=== PATIENT | male | born 1960 | race Caucasian/White ===

== ENCOUNTER 2017-05-08 09:35 | Emergency (ER) | payer SELFPAY ==
--- NOTE | 2017-05-08 10:19 | RAD ---
CHEST: Date: 05/08/17 HISTORY: Cough. COMPARISON: 10/28/15. FINDINGS: Cardiac silhouette is upper limits of normal. Shallow inspiration accentuates pulmonary markings. Ann ear atelectasis at the lung bases has increased since the prior study. No lobar consolidation, pleura l fluid, or pneumothorax are visible. IMPRESSION: Borderline pulmonary vascular congestion with bibasilar atelectasis. No lobar pneumonia is apparent. POS: [facility]
--- NOTE | 2017-05-08 10:20 | RAD ---
PARANASAL SINUSES 1 VIEW: Date: 05/08/17 HISTORY: Cough. Congestion. FINDINGS: Fluid layers within the dependent portion of the left maxillary sinus. There is near complete opacifi cation of the right maxillary sinus. Nasal septum is midline. IMPRESSION: Bilateral maxillary sinusitis. POS: [facility]
== END 2017-05-08 10:18 | disposition home or self-care (01) ==
LOC: MADERS 09:35
DX: J01.90 Acute sinusitis, unspecified (principal); J98.11 Atelectasis; Z87.891 Personal history of nicotine dependence
CPT/HCPCS: 70210; 71046

== ENCOUNTER 2017-05-12 13:30 | Emergency (ER) | payer SELFPAY ==
[2017-05-12] MEDS ORDERED: Benzonatate 100 MG CAP ONE (13:59)
[2017-05-12 14:21] LABS: #Basophils 0.1 thou/uL (0.0-0.2); #Eosinphils 0.1 thou/uL (0.0-0.7); #Lymphocytes 1.1 thou/uL (1.20-3.40); #Monocytes 0.5 thou/uL (0.11-0.59); #Neutrophils 7.3 thou/uL (1.40-6.50); %Basophils 0.6 % (0.0-1.0); %Eosinophils 0.9 % (0.0-10.0); %Lymphocytes 12.2 % (21.0-51.0); %Monocytes 5.9 % (0.0-10.0); %Neutrophils 80.3 % (42.0-75.0); Hemoglobin 13.9 g/dL (14.0-18.0); Mean Corpuscular HGB CONC 32.9 g/dL (32.0-36.0); Mean Corpuscular Hemoglobin 29.7 pg (27.0-31.0); Mean Corpuscular Volume 90.4 fl (80.0-94.0); Mean Platelet Volume 10.9 fL (7.4-10.4); Platelet Count 218 thou/uL (130-400); RBC Distribution Width 13.1 % (11.5-14.5); Red Blood Cell (RBC) Count 4.68 mill/uL (4.70-6.10); White Blood Cell (WBC) Count 9.1 thou/uL (4.8-10.8)
[2017-05-12 14:24] LABS: INR-International Normal Ratio 1.1; PTT 27.3 SEC (22.9-36.1); Prothrombin Time 14.2 SEC (12.0-14.7)
[2017-05-12 14:35] LABS: ALT (SGPT) 34 U/L (8-55); AST (SGOT) 24 U/L (5-34); Alkaline Phosphatase 81 U/L (40-150); Anion Gap 15 mmol/L (10-20); BUN (Urea Nitrogen) 15 mg/dL (8.4-25.7); Bilirubin, Total 0.8 mg/dL (0.2-1.2); Calc. Creatinine Clearance 0 mL/min (70-130); Calcium 9.4 mg/dL (7.8-10.44); Carbon Dioxide 23 mmol/L (22-29); Chloride 104 mmol/L (98-107); Estimated GFR-MDRD 83; Globulin 3.8 g/dL (2.4-3.5); Glucose 122 mg/dL (70-105); Lipase 40 U/L (8-78); Potassium 4.1 mmol/L (3.5-5.1); Protein, Total 7.8 g/dL (6.0-8.3); Sodium 138 mmol/L (136-145)
--- NOTE | 2017-05-12 15:02 | CT ---
ABDOMEN AND PELVIS CT WITH CONTRAST: INDICATION: Pain, pulled muscle. FINDINGS: Liver and spleen are unremarkable. No adrenal mass or hydronephrosis bilaterally. Pancreas is unrem arkable. The bowel is incompletely evaluated without enteric contrast. There is a heterogeneous mas s-like prominence of the inferior aspect of the left rectus abdominus with interspersed linear areas of hyperdensity. This favors an intramuscular hematoma, although an underlying mass cannot be exclud ed. There is mild inflammatory stranding of the ventral abdominal compartment deep to this region of abnormal ventral abdominal musculature. There is also overlying fat stranding of the subcutaneous r egion of the left abdomen. A small fat-containing umbilical hernia is present. The abdominal aorta is normal in caliber. The prostate gland is enlarged with internal calcification. There is mild lef t ventral mass effect upon the urinary bladder as a result of the abnormality of the left rectus musc le. No free air. The osseous structures reveal mild compression deformity of the L1 segment, age in determinate. Mild nonspecific patchy densities are seen at the lung bases. IMPRESSION: 1. Heterogeneous and enlarged left rectus abdominus muscle inferiorly with interspersed linear hyper density favoring intramuscular hematoma. However, an underlying mass cannot be exclude, and, therefo re, imaging followup to resolution is necessary. 2. Surrounding inflammatory fat stranding within the abdominal compartment and within the subcutaneo us tissues of the low abdomen. 3. Mild extrinsic mass effect upon urinary bladder as above. 4. Enlarged prostate gland with internal calcification. Recommend correlation with clinical exam an d PSA values to exclude underlying malignancy. POS: [facility]
[2017-05-12 15:17] LABS: Bilirubin Negative (Negative); Blood, Urine Negative (Negative); Clarity Clear (Clear); Glucose, Urine (Dipstick) Negative (Negative); Leukocyte Negative (Negative); Nitrite Negative (Negative); Protein, Urine (Dipstick) Trace mg/dL (Neg-Trace); pH, Urine 5.5 (5.0-9.0)
[2017-05-12] MEDS ORDERED: Ketorolac Tromethamine 30 MG/ML VIAL ONE (15:17)
== END 2017-05-12 15:41 | disposition home or self-care (01) ==
LOC: MADERS 13:30
DX: M79.81 Nontraumatic hematoma of soft tissue (principal); J32.9 Chronic sinusitis, unspecified; Z87.891 Personal history of nicotine dependence
CPT/HCPCS: 36415; 74177; 80053; 81003; 83605; 83690; 85025; 85610; 85730; 96374; J1885

== ENCOUNTER 2017-05-15 07:51 | Emergency (ER) | payer SELFPAY ==
[2017-05-15 08:54] LABS: #Basophils 0.1 thou/uL (0.0-0.2); #Eosinphils 0.2 thou/uL (0.0-0.7); #Lymphocytes 1.1 thou/uL (1.20-3.40); #Monocytes 0.6 thou/uL (0.11-0.59); #Neutrophils 3.1 thou/uL (1.40-6.50); %Basophils 1.7 % (0.0-1.0); %Eosinophils 4.1 % (0.0-10.0); %Lymphocytes 20.7 % (21.0-51.0); %Monocytes 11.8 % (0.0-10.0); %Neutrophils 61.7 % (42.0-75.0); Hemoglobin 13.1 g/dL (14.0-18.0); Mean Corpuscular HGB CONC 32.7 g/dL (32.0-36.0); Mean Corpuscular Hemoglobin 30.1 pg (27.0-31.0); Mean Platelet Volume 10.3 fL (7.4-10.4); Platelet Count 235 thou/uL (130-400); RBC Distribution Width 13.2 % (11.5-14.5); Red Blood Cell (RBC) Count 4.35 mill/uL (4.70-6.10); White Blood Cell (WBC) Count 5.1 thou/uL (4.8-10.8)
== END 2017-05-15 09:10 | disposition home or self-care (01) ==
LOC: MADERS 07:51
DX: S39.011A Strain of muscle, fascia and tendon of abdomen, initial encounter (principal); M79.89 Other specified soft tissue disorders; J20.9 Acute bronchitis, unspecified; X58.XXXA Exposure to other specified factors, initial encounter
CPT/HCPCS: 85025; 99283

== ENCOUNTER 2017-11-02 14:33 | Emergency (ER) | payer SELFPAY ==
[2017-11-02] MEDS ORDERED: Sulfameth/Trimethoprim DS 800-160mg TAB ONE (15:29)
[2017-11-02] MEDS ORDERED: Cephalexin 500 MG CAP ONE (15:29)
[2017-11-02] MEDS ORDERED: Naproxen 500 MG TAB ONE (15:29)
== END 2017-11-02 15:35 | disposition home or self-care (01) ==
LOC: MADERS 14:33
DX: L02.11 Cutaneous abscess of neck (principal); Z87.891 Personal history of nicotine dependence
CPT/HCPCS: 99282

== ENCOUNTER 2018-07-13 01:27 | Emergency (ER) | payer SELFPAY ==
[2018-07-13] MEDS ORDERED: Benzonatate 100 MG CAP ONE (02:12)
[2018-07-13] MEDS ORDERED: predniSONE 20 MG TAB ONE (02:12)
== END 2018-07-13 02:17 | disposition home or self-care (01) ==
LOC: MADERS 01:27
DX: J06.9 Acute upper respiratory infection, unspecified (principal); Z87.891 Personal history of nicotine dependence
CPT/HCPCS: 99283

== ENCOUNTER 2019-01-30 10:10 | Emergency (ER) | payer SELFPAY ==
[2019-01-30] MEDS ORDERED: Cephalexin 250 MG CAP ONE (10:38)
[2019-01-30] MEDS ORDERED: Cephalexin 500 MG CAP ONE (10:38)
[2019-01-30] MEDS ORDERED: Bacitracin 1 PK ONE (10:38)
== END 2019-01-30 10:49 | disposition home or self-care (01) ==
LOC: MADERS 10:10
DX: L03.311 Cellulitis of abdominal wall (principal); K21.9 Gastro-esophageal reflux disease without esophagitis; I10 Essential (primary) hypertension; Z87.891 Personal history of nicotine dependence
CPT/HCPCS: 99283

== ENCOUNTER 2019-11-29 17:00 | Emergency (ER) | payer OTHER ==
[2019-11-29 17:47] LABS: #Basophils 0.1 thou/uL (0.0-0.2); #Eosinphils 0.1 thou/uL (0.0-0.7); #Lymphocytes 1.6 thou/uL (1.20-3.40); #Monocytes 0.7 thou/uL (0.11-0.59); #Neutrophils 2.4 thou/uL (1.40-6.50); %Basophils 1.3 % (0.0-1.0); %Eosinophils 1.9 % (0.0-10.0); %Monocytes 13.9 % (0.0-10.0); Hemoglobin 15.1 g/dL (14.0-18.0); Mean Corpuscular HGB CONC 31.7 g/dL (32.0-36.0); Mean Corpuscular Hemoglobin 28.4 pg (27.0-31.0); Mean Corpuscular Volume 89.7 fL (78.0-98.0); Platelet Count 120 thou/uL (130-400); RBC Distribution Width 13.5 % (11.5-14.5); Red Blood Cell (RBC) Count 5.33 mill/uL (4.70-6.10); White Blood Cell (WBC) Count 4.8 thou/uL (4.8-10.8)
[2019-11-29 18:04] LABS: ALT (SGPT) 23 U/L (8-55); AST (SGOT) 21 U/L (5-34); Albumin 4.4 g/dL (3.5-5.0); Alkaline Phosphatase 79 U/L (40-110); Anion Gap 16 mmol/L (10-20); BUN (Urea Nitrogen) 12 mg/dL (8.4-25.7); Bilirubin, Total 0.7 mg/dL (0.2-1.2); Calc. Creatinine Clearance 0 mL/min (70-130); Calcium 9.2 mg/dL (7.8-10.44); Carbon Dioxide 23 mmol/L (22-29); Chloride 108 mmol/L (98-107); Estimated GFR-MDRD 89; Globulin 3.4 g/dL (2.4-3.5); Glucose 100 mg/dL (70-105); Protein, Total 7.8 g/dL (6.0-8.3); Sodium 143 mmol/L (136-145)
== END 2019-11-29 18:17 | disposition home or self-care (01) ==
LOC: MADERS 17:00
DX: R27.0 Ataxia, unspecified (principal); T42.6X5A Adverse effect of other antiepileptic and sedative-hypnotic drugs, initial encounter; K21.9 Gastro-esophageal reflux disease without esophagitis; I10 Essential (primary) hypertension; Z87.891 Personal history of nicotine dependence; Z79.899 Other long term (current) drug therapy
CPT/HCPCS: 36415; 80053; 84484; 85025; 93005

== ENCOUNTER 2019-12-24 09:32 | Emergency (ER) | payer OTHER | END 2019-12-24 10:20 | disposition home or self-care (01) | LOC: MADERS 09:32 | DX: I10 Essential (primary) hypertension (principal); K21.9 Gastro-esophageal reflux disease without esophagitis; Z79.899 Other long term (current) drug therapy | CPT/HCPCS: 99283 ==

== ENCOUNTER 2020-01-30 10:57 | Emergency (ER) | payer OTHER, SELFPAY ==
[2020-01-30] MEDS ORDERED: Aspirin Chewable 81 MG TAB ONE (11:22)
[2020-01-30 11:26] LABS: #Basophils 0.1 thou/uL (0.0-0.2); #Eosinphils 0.1 thou/uL (0.0-0.7); #Lymphocytes 1.7 thou/uL (1.20-3.40); #Monocytes 0.6 thou/uL (0.11-0.59); #Neutrophils 2.6 thou/uL (1.40-6.50); %Eosinophils 1.4 % (0.0-10.0); %Lymphocytes 33.9 % (21.0-51.0); %Monocytes 11.8 % (0.0-10.0); %Neutrophils 51.9 % (42.0-75.0); Hemoglobin 14.7 g/dL (14.0-18.0); Mean Corpuscular HGB CONC 32.2 g/dL (32.0-36.0); Mean Corpuscular Hemoglobin 28.3 pg (27.0-31.0); Mean Corpuscular Volume 87.9 fL (78.0-98.0); Mean Platelet Volume 10.6 fL (7.4-10.4); Platelet Count 122 thou/uL (130-400); RBC Distribution Width 13.4 % (11.5-14.5); Red Blood Cell (RBC) Count 5.21 mill/uL (4.70-6.10); White Blood Cell (WBC) Count 5.1 thou/uL (4.8-10.8)
--- NOTE | 2020-01-30 11:30 | RAD ---
Chest AP view INDICATION: Chest pain COMPARISON: Two-view chest radiograph from [facility] dated May 08, 2017 FINDINGS: Lungs: The lungs are clear Cardiac silhouette: Stable mild cardiomegaly Pulmonary vasculature: Normal Pleural spaces: No pleural effusion or pneumothorax is demonstrated. Upper abdomen: No abnormality seen. Osseous structures: No acute osseous abnormality. Additional findings: None. IMPRESSION: No acute cardiopulmonary abnormality.
[2020-01-30 11:43] LABS: ALT (SGPT) 23 U/L (8-55); AST (SGOT) 17 U/L (5-34); Albumin 4.3 g/dL (3.5-5.0); Alkaline Phosphatase 93 U/L (40-110); Anion Gap 14 mmol/L (10-20); BUN (Urea Nitrogen) 12 mg/dL (8.4-25.7); Bilirubin, Total 0.8 mg/dL (0.2-1.2); CK (CPK) 85 U/L (30-200); Calc. Creatinine Clearance 0 mL/min (70-130); Calcium 9.5 mg/dL (7.8-10.44); Carbon Dioxide 28 mmol/L (22-29); Chloride 103 mmol/L (98-107); Estimated GFR-MDRD 77; Globulin 3.6 g/dL (2.4-3.5); Glucose 114 mg/dL (70-105); Potassium 3.9 mmol/L (3.5-5.1); Protein, Total 7.9 g/dL (6.0-8.3); Sodium 141 mmol/L (136-145)
[2020-01-30 11:44] LABS: CKMB 1.3 ng/mL (0-6.6)
== END 2020-01-30 14:10 | disposition home or self-care (01) ==
LOC: MADERS 10:57
DX: R07.2 Precordial pain (principal); I10 Essential (primary) hypertension; G81.94 Hemiplegia, unspecified affecting left nondominant side; K21.9 Gastro-esophageal reflux disease without esophagitis; Z87.891 Personal history of nicotine dependence; Z79.899 Other long term (current) drug therapy
CPT/HCPCS: 36415; 71045; 80053; 82550; 82553; 84484; 85025; 93005; 94760

== ENCOUNTER 2020-09-03 14:11 | Emergency (ER) | payer MEDICAID ==
[~2020-09-03 14:11] MED LIST: Sodium Chloride 0.9% 100 ML BAG ONE
[2020-09-03] MEDS ORDERED: Iopamidol 370 76% 125 ML VIAL FS ONE (14:12)
[2020-09-03 14:50] LABS: PTT 28.9 sec (22.9-36.1); Prothrombin Time 13.1 sec (12.0-14.7)
[2020-09-03 15:01] LABS: ALT (SGPT) 23 U/L (8-55); AST (SGOT) 20 U/L (5-34); Albumin 4.6 g/dL (3.5-5.0); Alkaline Phosphatase 82 U/L (40-110); Anion Gap 18 mmol/L (10-20); BUN (Urea Nitrogen) 12 mg/dL (8.4-25.7); Bilirubin, Total 0.7 mg/dL (0.2-1.2); CK (CPK) 189 U/L (30-200); Calc. Creatinine Clearance 0 mL/min (70-130); Calcium 9.4 mg/dL (7.8-10.44); Carbon Dioxide 23 mmol/L (22-29); Chloride 106 mmol/L (98-107); Globulin 3.4 g/dL (2.4-3.5); Glucose 132 mg/dL (70-105); Potassium 4.1 mmol/L (3.5-5.1); Sodium 143 mmol/L (136-145)
[2020-09-03 15:03] LABS: CKMB 1.3 ng/mL (0-6.6)
[2020-09-03 15:05] LABS: Hemoglobin 15.8 g/dL (14.0-18.0); Mean Corpuscular HGB CONC 30.9 g/dL (32.0-36.0); Mean Corpuscular Hemoglobin 27.9 pg (27.0-31.0); Mean Corpuscular Volume 90.4 fL (78.0-98.0); Platelet Count 96 thou/uL (130-400); RBC Distribution Width 14.5 % (11.5-14.5); Red Blood Cell (RBC) Count 5.67 mill/uL (4.70-6.10); White Blood Cell (WBC) Count 6.6 thou/uL (4.8-10.8)
[2020-09-03 15:12] LABS: #Neutrophils 3.3 thou/uL (1.40-6.50); %Basophils 2.9 % (0.0-1.0); %Eosinophils 0.9 % (0.0-10.0); %Lymphocytes 29.5 % (21.0-51.0); %Monocytes 16.6 % (0.0-10.0)
[2020-09-03 15:13] LABS: #Basophils 0.2 thou/uL (0.0-0.2); #Eosinphils 0.1 thou/uL (0.0-0.7); #Lymphocytes 1.9 thou/uL (1.20-3.40); #Monocytes 1.1 thou/uL (0.11-0.59); Platelet Morphology Comment Appears Adequate; RBC Morphology Normal
[2020-09-03 15:14] LABS: Giant Platelets SLIGHT; Large Platelets SLIGHT
[2020-09-03] MEDS ORDERED: Sodium Chloride 0.9% 1,000 ML ONE (15:21)
[2020-09-03 16:08] LABS: Bilirubin Negative (Negative); Blood, Urine Small (Negative); Clarity Clear (Clear); Glucose, Urine (Dipstick) Negative (Negative); Ketone, Urine Negative (Negative); Leukocyte Negative (Negative); Nitrite Negative (Negative); Protein, Urine (Dipstick) Negative (Neg-Trace)
[2020-09-03 16:16] LABS: Squamous Epithelial 0-3 HPF (0-3); WBC/HPF 0-3 HPF (0-3)
[2020-09-03 16:18] LABS: Amphetamine Not Detected (NotDetected); Barbiturates Screen Not Detected (NotDetected); Benzodiazepine Screen Not Detected (NotDetected); Cocaine Metabolite Screen Not Detected (NotDetected); Medtox Control Line Valid? VALID (VALID); Methadone Not Detected (NotDetected); Methamphetamine Not Detected (NotDetected); Opiate Screen Not Detected (NotDetected); Oxycodone Screen Not Detected (NotDetected); Phencyclidine (PCP) Not Detected (NotDetected); THC/Cannabinoid Screen Not Detected (NotDetected); Tricyclic Screen Not Detected (NotDetected)
== END 2020-09-03 17:00 | disposition short-term general hospital (02) ==
LOC: MADERS 14:11
DX: I63.9 Cerebral infarction, unspecified (principal); G81.94 Hemiplegia, unspecified affecting left nondominant side; R47.81 Slurred speech; R00.0 Tachycardia, unspecified; I10 Essential (primary) hypertension; K21.9 Gastro-esophageal reflux disease without esophagitis; I67.1 Cerebral aneurysm, nonruptured; D69.6 Thrombocytopenia, unspecified; R29.701 NIHSS score 1; Z87.891 Personal history of nicotine dependence
CPT/HCPCS: 36416; 70450; 70496; 70498; 71045; 80053; 80306; 81003; 81015; 82550; 82553; 84443; 84484; 85025; 85610; 85730; 93005; 94760; J3490; J7050; Q9967

== ENCOUNTER 2020-10-03 11:31 | Emergency (ER) | payer OTHER | END 2020-10-03 12:38 | disposition home or self-care (01) | LOC: MADERS 11:31 | DX: J20.9 Acute bronchitis, unspecified (principal); R00.0 Tachycardia, unspecified; K21.9 Gastro-esophageal reflux disease without esophagitis; I10 Essential (primary) hypertension; G56.90 Unspecified mononeuropathy of unspecified upper limb; Z86.73 Personal history of transient ischemic attack (TIA), and cerebral infarction without residual deficits; Z87.891 Personal history of nicotine dependence; Z79.899 Other long term (current) drug therapy | CPT/HCPCS: 71046 ==

== ENCOUNTER 2020-12-29 00:51 | Emergency (ER) | payer OTHER ==
[2020-12-29] MEDS ORDERED: Ondansetron PF 4 MG/2 ML Vial ONE (01:15)
[2020-12-29] MEDS ORDERED: Fentanyl 100 MCG/2 ML VIAL ONE (01:33)
[2020-12-29 02:23] LABS: Amphetamine Not Detected (NotDetected); Barbiturates Screen Not Detected (NotDetected); Benzodiazepine Screen Not Detected (NotDetected); Cocaine Metabolite Screen Not Detected (NotDetected); Medtox Control Line Valid? VALID (VALID); Methadone Not Detected (NotDetected); Methamphetamine Not Detected (NotDetected); Opiate Screen Not Detected (NotDetected); Oxycodone Screen Not Detected (NotDetected); Phencyclidine (PCP) Not Detected (NotDetected); THC/Cannabinoid Screen Not Detected (NotDetected); Tricyclic Screen Not Detected (NotDetected)
[2020-12-29 02:25] LABS: Bilirubin Negative (Negative); Blood, Urine Trace (Negative); Clarity Clear (Clear); Glucose, Urine (Dipstick) Negative (Negative); Ketone, Urine Negative (Negative); Leukocyte Negative (Negative); Nitrite Negative (Negative); Protein, Urine (Dipstick) Negative (Neg-Trace); Specific Gravity, Urine 1.025 (1.005-1.030); pH, Urine 6.5 (5.0-9.0)
[2020-12-29 02:45] LABS: Band 1 % (5-11); Eosinophils 4 % (0-10); Giant Platelets SLIGHT; Hemoglobin 15.2 g/dL (14.0-18.0); Large Platelets MODERATE; Lymphocytes 21 % (21-51); MDiff Complete? YES; Mean Corpuscular HGB CONC 31.3 g/dL (32.0-36.0); Mean Corpuscular Hemoglobin 27.7 pg (27.0-31.0); Mean Corpuscular Volume 88.4 fL (78.0-98.0); Mean Platelet Volume 14.3 fL (7.4-10.4); Monocytes 23 % (0-10); Neutrophil 37 % (42-75); Platelet Count 92 thou/uL (130-400); Platelet Morphology Comment Appears Decreased; RBC Distribution Width 14.4 % (11.5-14.5); Reactive Lymphocytes 14 % (0-10); White Blood Cell (WBC) Count 8.5 thou/uL (4.8-10.8)
[2020-12-29 03:13] LABS: Squamous Epithelial 0-3 HPF (0-3); WBC/HPF 0-3 HPF (0-3)
[2020-12-29 03:14] LABS: Bacteria/HPF None Seen HPF (None Seen); Renal Epithelial 0-3 HPF (None Seen)
[2020-12-29 03:35] LABS: ALT (SGPT) 27 U/L (8-55); AST (SGOT) 20 U/L (5-34); Albumin 4.5 g/dL (3.5-5.0); Alkaline Phosphatase 89 U/L (40-110); Anion Gap 13 mmol/L (10-20); BUN (Urea Nitrogen) 14 mg/dL (8.4-25.7); Bilirubin, Total 0.6 mg/dL (0.2-1.2); Calc. Creatinine Clearance 0 mL/min (70-130); Calcium 9.9 mg/dL (7.8-10.44); Carbon Dioxide 27 mmol/L (22-29); Chloride 103 mmol/L (98-107); Globulin 3.6 g/dL (2.4-3.5); Glucose 125 mg/dL (70-105); Lipase 198 U/L (8-78); Protein, Total 8.1 g/dL (6.0-8.3); Sodium 139 mmol/L (136-145)
[2020-12-29 04:06] LABS: MONO NEGATIVE CONTROL ZONE White (Negative) (White); MONO POSITIVE CONTROL Pink Line (Positive) (PINK/RED); Mononucleosis NEGATIVE (NEGATIVE)
[2020-12-29] MEDS ORDERED: Iopamidol 370 76% 125 ML VIAL FS ONE (10:21)
[2020-12-29] MEDS ORDERED: Sodium Chloride 0.9% 100 ML BAG ONE (10:26)
== END 2020-12-29 04:04 | disposition home or self-care (01) ==
LOC: MADERS 00:51
DX: K85.90 Acute pancreatitis without necrosis or infection, unspecified (principal); K21.9 Gastro-esophageal reflux disease without esophagitis; I10 Essential (primary) hypertension; Z86.73 Personal history of transient ischemic attack (TIA), and cerebral infarction without residual deficits; Z87.891 Personal history of nicotine dependence; Z79.899 Other long term (current) drug therapy; Z79.82 Long term (current) use of aspirin
CPT/HCPCS: 71275; 74174; 80053; 80306; 81003; 81015; 83605; 83690; 83880; 84484; 85025; 86308; 93005; 94760; 96374; 96375; J2405; J3010; J3490; Q9967

== ENCOUNTER 2021-01-02 02:52 | Emergency (ER) | payer OTHER | END 2021-01-02 04:00 | disposition home or self-care (01) | LOC: MADERS 02:52 | DX: R10.11 Right upper quadrant pain (principal); R11.0 Nausea; K21.9 Gastro-esophageal reflux disease without esophagitis; I10 Essential (primary) hypertension; Z86.73 Personal history of transient ischemic attack (TIA), and cerebral infarction without residual deficits; Z87.891 Personal history of nicotine dependence; Z79.82 Long term (current) use of aspirin; Z79.899 Other long term (current) drug therapy | CPT/HCPCS: 93005 ==

== ENCOUNTER 2021-01-18 07:45 | Outpatient (CLI) | payer OTHER | END 2021-01-18 07:46 | disposition home or self-care (01) | LOC: MADULT 07:45 | PROVIDERS: ATTEND Family Medicine | DX: R10.9 Unspecified abdominal pain (principal); K80.20 Calculus of gallbladder without cholecystitis without obstruction; K82.8 Other specified diseases of gallbladder | CPT/HCPCS: 76705 ==

== ENCOUNTER 2021-06-12 09:29 | Emergency (ER) | payer OTHER ==
[2021-06-12 10:22] LABS: Bilirubin Negative (Negative); Blood, Urine Large (Negative); Clarity Cloudy (Clear); Glucose, Urine (Dipstick) Negative (Negative); Ketone, Urine Negative (Negative); Leukocyte Negative (Negative); Nitrite Negative (Negative); Protein, Urine (Dipstick) > or equal to 300 mg/dL (Neg-Trace); Urobilinogen 0.2 mg/dL (Less than 2)
[2021-06-12 10:23] LABS: Bacteria/HPF 1+ HPF (None Seen); RBC/HPF Greater than 50 HPF (0-3); Squamous Epithelial None Seen HPF (0-3); WBC/HPF 0-3 HPF (0-3)
== END 2021-06-12 12:39 | disposition home or self-care (01) ==
LOC: MADERS 09:29
DX: R33.9 Retention of urine, unspecified (principal); R31.9 Hematuria, unspecified; K21.9 Gastro-esophageal reflux disease without esophagitis; I10 Essential (primary) hypertension; Z86.73 Personal history of transient ischemic attack (TIA), and cerebral infarction without residual deficits; Z87.891 Personal history of nicotine dependence; Z79.899 Other long term (current) drug therapy
CPT/HCPCS: 51702; 81003; 81015; 87086

== ENCOUNTER 2021-06-18 09:06 | Emergency (ER) | payer OTHER ==
[2021-06-18 20:15] LABS: SARS-CoV-2 PCR by NAA DETECTED (NotDetected)
== END 2021-06-18 10:49 | disposition home or self-care (01) ==
LOC: MADERS 09:06
DX: U07.1 COVID-19 (principal); J12.82 Pneumonia due to coronavirus disease 2019; I10 Essential (primary) hypertension; Z87.891 Personal history of nicotine dependence; Z79.899 Other long term (current) drug therapy
CPT/HCPCS: 71045; 87804; U0003; U0005

== ENCOUNTER 2021-06-21 23:41 | Emergency (ER) | payer OTHER ==
[~2021-06-21 23:41] MED LIST changes: +Iopamidol 370 76% 125 ML VIAL FS ONE; -Sodium Chloride 0.9% 100 ML BAG ONE
[2021-06-22] MEDS ORDERED: Ipratropium Bromide 2.5 ml Neb ONE (00:19)
[2021-06-22] MEDS ORDERED: Albuterol Sulfate 2.5 mg/3 ml Neb ONE (00:19)
[2021-06-22 00:48] LABS: Hemoglobin 13.6 g/dL (14.0-18.0); Mean Corpuscular HGB CONC 32.8 g/dL (32.0-36.0); Mean Corpuscular Hemoglobin 27.2 pg (27.0-31.0); Mean Corpuscular Volume 82.9 fL (78.0-98.0); Platelet Count 100 thou/uL (130-400); RBC Distribution Width 14.9 % (11.5-14.5); Red Blood Cell (RBC) Count 5.01 mill/uL (4.70-6.10); White Blood Cell (WBC) Count 20.3 thou/uL (4.8-10.8)
[2021-06-22 00:49] LABS: Band 2 % (5-11); Lymphocytes 19 % (21-51); MDiff Complete? YES; Monocytes 8 % (0-10); Neutrophil 71 % (42-75); Platelet Morphology Comment Appears Decreased; RBC Morphology Normal
[2021-06-22] MEDS ORDERED: Benzonatate 100 MG CAP ONE (00:50)
[2021-06-22 00:58] LABS: ALT (SGPT) 24 U/L (8-55); AST (SGOT) 17 U/L (5-34); Albumin 4.3 g/dL (3.5-5.0); Alkaline Phosphatase 95 U/L (40-110); Anion Gap 17 mmol/L (10-20); BUN (Urea Nitrogen) 15 mg/dL (8.4-25.7); Bilirubin, Total 0.6 mg/dL (0.2-1.2); Calc. Creatinine Clearance 0 mL/min (70-130); Calcium 9.2 mg/dL (7.8-10.44); Carbon Dioxide 23 mmol/L (22-29); Chloride 105 mmol/L (98-107); Globulin 3.7 g/dL (2.4-3.5); Glucose 119 mg/dL (70-105); Potassium 3.9 mmol/L (3.5-5.1); Sodium 141 mmol/L (136-145)
[2021-06-22] MEDS ORDERED: Lactated Ringer's 1,000 ML ONE (01:08)
[2021-06-22] MEDS ORDERED: Morphine 4 MG/ML VIAL ONE (01:54)
[2021-06-22] MEDS ORDERED: Acetaminophen 500 MG TAB ONE (01:55)
[2021-06-22] MEDS ORDERED: Sodium Chloride 0.9% 250 ML 500 ML ONE (01:55)
[2021-06-22] MEDS ORDERED: Cefepime 2 GM VIAL ONE (01:55)
[2021-06-22] MEDS ORDERED: Sodium Chloride 0.9% 100 ML ONE (01:55)
[2021-06-22] MEDS ORDERED: Dexamethasone 10 MG/ML VIAL ONE (02:39)
[2021-06-22 02:59] LABS: Lactic Acid 3.6 mmol/L (0.5-2.2)
[2021-06-22] MEDS ORDERED: Acetaminophen 325 MG TAB PO PRN (04:30)
[2021-06-22] MEDS ORDERED: Cefepime 2 GM in Sodium Chloride 0.9% 100 ML IVPB SCH (10:00)
== END 2021-06-22 02:53 | disposition short-term general hospital (02) ==
LOC: MADERS 23:41
DX: A41.89 Other specified sepsis (principal); U07.1 COVID-19; J12.82 Pneumonia due to coronavirus disease 2019; I71.9 Aortic aneurysm of unspecified site, without rupture; R00.0 Tachycardia, unspecified; R09.02 Hypoxemia; I10 Essential (primary) hypertension; K21.9 Gastro-esophageal reflux disease without esophagitis; E78.5 Hyperlipidemia, unspecified; G62.9 Polyneuropathy, unspecified; Z87.442 Personal history of urinary calculi; Z86.73 Personal history of transient ischemic attack (TIA), and cerebral infarction without residual deficits; Z87.891 Personal history of nicotine dependence
CPT/HCPCS: 36415; 71045; 71275; 80053; 83605; 84484; 85025; 85379; 87040; 93005; 94760; 96365; 96375; J0692; J1100; J2270; J3370; J7050; J7120; J7611; J7620; Q9967

== ENCOUNTER 2021-06-29 10:15 | Emergency (ER) | payer OTHER ==
[2021-06-29 11:32] LABS: Hemoglobin 14.2 g/dL (14.0-18.0); Mean Corpuscular HGB CONC 31.8 g/dL (32.0-36.0); Mean Corpuscular Hemoglobin 26.1 pg (27.0-31.0); Mean Corpuscular Volume 82.1 fL (78.0-98.0); Mean Platelet Volume 10.7 fL (7.4-10.4); Platelet Count 159 thou/uL (130-400); RBC Distribution Width 15.5 % (11.5-14.5); Red Blood Cell (RBC) Count 5.45 mill/uL (4.70-6.10); White Blood Cell (WBC) Count 21.7 thou/uL (4.8-10.8)
[2021-06-29 11:43] LABS: ALT (SGPT) 46 U/L (8-55); AST (SGOT) 23 U/L (5-34); Albumin 4.1 g/dL (3.5-5.0); Alkaline Phosphatase 85 U/L (40-110); Anion Gap 18 mmol/L (10-20); BUN (Urea Nitrogen) 21 mg/dL (8.4-25.7); Bilirubin, Total 0.6 mg/dL (0.2-1.2); Calc. Creatinine Clearance 0 mL/min (70-130); Calcium 9.4 mg/dL (7.8-10.44); Carbon Dioxide 24 mmol/L (22-29); Chloride 105 mmol/L (98-107); Globulin 3.1 g/dL (2.4-3.5); Glucose 101 mg/dL (70-105); Potassium 4.6 mmol/L (3.5-5.1); Protein, Total 7.2 g/dL (6.0-8.3); Sodium 142 mmol/L (136-145)
[2021-06-29 11:46] LABS: MDiff Complete? YES
[2021-06-29 11:48] LABS: Neutrophil 86 % (42-75)
[2021-06-29 11:49] LABS: Anisocytosis SLIGHT = 6-15 cells (100X) (0-5/hpf); Band 6 % (5-11); Lymphocytes 5 % (21-51); Platelet Morphology Comment Appears Adequate; Reactive Lymphocytes 3 % (0-10)
[2021-06-29 11:53] LABS: Specific Gravity, Urine 1.025 (1.002-1.036)
[2021-06-29 11:54] LABS: Glucose, Urine (Dipstick) Negative (Negative); Leukocyte Unable to Interpret (Negative); Nitrite Unable to Interpret (Negative); Protein, Urine (Dipstick) > or equal to 300 mg/dL (Neg-Trace)
[2021-06-29 11:55] LABS: Bilirubin Large (Negative); Blood, Urine Large (Negative); Clarity Slightly Cloudy (Clear); Ketone, Urine 15 mg/dL (Negative); Urobilinogen 0.2 mg/dL (Less than 2)
[2021-06-29 11:56] LABS: RBC/HPF Greater than 50 HPF (0-3); Squamous Epithelial 0-3 HPF (0-3)
[2021-06-29 11:57] LABS: Bacteria/HPF Rare-Few HPF (None Seen)
[2021-06-29] MEDS ORDERED: Sodium Chloride 0.9% 2,000 ML ONE (13:28)
== END 2021-06-29 14:30 | disposition home or self-care (01) ==
LOC: MADERS 10:15
DX: D72.829 Elevated white blood cell count, unspecified (principal); R31.9 Hematuria, unspecified; R93.89 Abnormal findings on diagnostic imaging of other specified body structures; K21.9 Gastro-esophageal reflux disease without esophagitis; I10 Essential (primary) hypertension; Z86.73 Personal history of transient ischemic attack (TIA), and cerebral infarction without residual deficits; Z87.891 Personal history of nicotine dependence
CPT/HCPCS: 74177; 80053; 81003; 81015; 85025; 86850; 86900; 86901; 87086; J7050

== ENCOUNTER 2021-06-30 10:08 | Emergency (ER) | payer OTHER ==
[2021-06-30 11:37] LABS: #Basophils 0.4 thou/uL (0.0-0.2); #Eosinphils 0.1 thou/uL (0.0-0.7); #Lymphocytes 2.1 thou/uL (1.20-3.40); #Monocytes 1.9 thou/uL (0.11-0.59); #Neutrophils 15.2 thou/uL (1.40-6.50); %Eosinophils 0.5 % (0.0-10.0); %Lymphocytes 10.4 % (21.0-51.0); %Monocytes 9.8 % (0.0-10.0); %Neutrophils 77.2 % (42.0-75.0); Hemoglobin 13.4 g/dL (14.0-18.0); Mean Corpuscular HGB CONC 31.6 g/dL (32.0-36.0); Mean Corpuscular Hemoglobin 26.3 pg (27.0-31.0); Mean Platelet Volume 9.9 fL (7.4-10.4); Platelet Count 140 thou/uL (130-400); RBC Distribution Width 15.7 % (11.5-14.5); Red Blood Cell (RBC) Count 5.09 mill/uL (4.70-6.10); White Blood Cell (WBC) Count 19.7 thou/uL (4.8-10.8)
[2021-06-30 11:44] LABS: PTT 25.8 sec (22.9-36.1); Prothrombin Time 13.7 sec (12.0-14.7)
[2021-06-30 11:54] LABS: ALT (SGPT) 41 U/L (8-55); AST (SGOT) 21 U/L (5-34); Albumin 3.9 g/dL (3.5-5.0); Alkaline Phosphatase 78 U/L (40-110); Anion Gap 16 mmol/L (10-20); BUN (Urea Nitrogen) 20 mg/dL (8.4-25.7); Bilirubin, Total 0.6 mg/dL (0.2-1.2); Calc. Creatinine Clearance 0 mL/min (70-130); Calcium 9.3 mg/dL (7.8-10.44); Carbon Dioxide 24 mmol/L (22-29); Chloride 107 mmol/L (98-107); Glucose 107 mg/dL (70-105); Potassium 3.8 mmol/L (3.5-5.1); Protein, Total 6.9 g/dL (6.0-8.3); Sodium 143 mmol/L (136-145)
[2021-06-30] MEDS ORDERED: Sodium Chloride 0.9% 2,000 ML ONE (12:13)
[2021-06-30] MEDS ORDERED: cefTRIAXone\\ROCEPHIN 2 GM VIAL ONE (12:13)
[2021-06-30] MEDS ORDERED: Sodium Chloride 0.9% 100 ML ONE (12:13)
[2021-06-30 12:20] LABS: Leukocyte Negative (Negative); Nitrite Negative (Negative); pH, Urine 6.5 (5.0-9.0)
[2021-06-30 12:21] LABS: Glucose, Urine (Dipstick) Negative (Negative); Ketone, Urine Negative (Negative); Protein, Urine (Dipstick) 300 mg/dL (Neg-Trace); Urobilinogen 0.2 mg/dL (Less than 2)
[2021-06-30 12:22] LABS: Bilirubin Negative (Negative); Blood, Urine Large (Negative)
[2021-06-30 12:23] LABS: Bacteria/HPF 1+ HPF (None Seen); Clarity Cloudy (Clear); RBC/HPF 21-50 HPF (0-3); Squamous Epithelial 0-3 HPF (0-3); WBC/HPF 0-3 HPF (0-3)
== END 2021-06-30 14:55 | disposition home or self-care (01) ==
LOC: MADERS 10:08
DX: E86.0 Dehydration (principal); R33.9 Retention of urine, unspecified; R31.9 Hematuria, unspecified; K21.9 Gastro-esophageal reflux disease without esophagitis; N40.0 Benign prostatic hyperplasia without lower urinary tract symptoms; I10 Essential (primary) hypertension; Z86.73 Personal history of transient ischemic attack (TIA), and cerebral infarction without residual deficits; Z87.891 Personal history of nicotine dependence; Z79.899 Other long term (current) drug therapy; D72.829 Elevated white blood cell count, unspecified; R93.89 Abnormal findings on diagnostic imaging of other specified body structures
CPT/HCPCS: 36415; 51702; 71045; 74177; 80053; 81003; 81015; 82550; 83605; 85025; 85610; 85730; 86850; 86900; 86901; 87040; 87086; 96365; J0696; J3490; J7050

== ENCOUNTER 2021-06-30 20:05 | Emergency (ER) | payer OTHER | END 2021-06-30 23:16 | disposition home or self-care (01) | LOC: MADERS 20:05 | DX: T83.091A Other mechanical complication of indwelling urethral catheter, initial encounter (principal); N32.9 Bladder disorder, unspecified; R31.9 Hematuria, unspecified; K21.9 Gastro-esophageal reflux disease without esophagitis; N40.0 Benign prostatic hyperplasia without lower urinary tract symptoms; I10 Essential (primary) hypertension; Z86.73 Personal history of transient ischemic attack (TIA), and cerebral infarction without residual deficits; Z87.891 Personal history of nicotine dependence; Z79.899 Other long term (current) drug therapy | CPT/HCPCS: 36415; 51702; 71045; 80053; 81003; 81015; 82550; 83605; 85025; 85610; 85730; 87040; 87086; 96365; J0696; J3490; J7050 ==

== ENCOUNTER 2021-12-26 21:58 | Emergency (ER) | payer OTHER ==
[2021-12-26 23:00] LABS: ALT (SGPT) 17 U/L (8-55); AST (SGOT) 16 U/L (5-34); Albumin 4.4 g/dL (3.5-5.0); Alkaline Phosphatase 87 U/L (40-110); Anion Gap 14 mmol/L (10-20); BUN (Urea Nitrogen) 13 mg/dL (8.4-25.7); Bilirubin, Total 0.6 mg/dL (0.2-1.2); Calc. Creatinine Clearance 0 mL/min (70-130); Carbon Dioxide 23 mmol/L (22-29); Chloride 107 mmol/L (98-107); Estimated GFR 98; Glucose 117 mg/dL (70-105); Lipase 34 U/L (8-78); Potassium 3.9 mmol/L (3.5-5.1); Protein, Total 8.4 g/dL (6.0-8.3); Sodium 140 mmol/L (136-145)
[2021-12-26] MEDS ORDERED: Aspirin Chewable 81 MG TAB ONE (23:05)
[2021-12-26] MEDS ORDERED: Mag-Al Plus 1200 MG/1200 MG/120 MG/30 ML UDCUP ONE (23:05)
[2021-12-26] MEDS ORDERED: Lidocaine Viscous Sol 2% 15 ml UD Cup ONE (23:05)
[2021-12-26 23:10] LABS: Band 1 % (5-11); Eosinophils 7 % (0-10); Giant Platelets SLIGHT; Hypochromia SLIGHT = 6-15 cells (100X) (0-5/hpf); Large Platelets SLIGHT; Lymphocytes 31 % (21-51); MDiff Complete? YES; Mean Corpuscular HGB CONC 28.7 g/dL (32.0-36.0); Mean Corpuscular Hemoglobin 19.3 pg (27.0-31.0); Mean Corpuscular Volume 67.5 fL (78.0-98.0); Mean Platelet Volume 14.8 fL (7.4-10.4); Microcytosis MODERATE=15-30 cells (100X) (0-5/hpf); Monocytes 2 % (0-10); Neutrophil 47 % (42-75); Platelet Count 42 thou/uL (130-400); Platelet Morphology Comment Appears Decreased; Polychromasia SLIGHT = 2-3 cells (100X) (0-2/hpf); Reactive Lymphocytes 8 % (0-10); Red Blood Cell (RBC) Count 5.16 mill/uL (4.70-6.10); Reflex for Review?? YES; White Blood Cell (WBC) Count 2.8 thou/uL (4.8-10.8)
[2021-12-26 23:23] LABS: CKMB 1.3 ng/mL (0-6.6)
[2021-12-27 01:30] LABS: Troponin I 0.033 ng/mL (< 0.028)
== END 2021-12-27 01:11 | disposition short-term general hospital (02) ==
LOC: MADERS 21:58
DX: R07.2 Precordial pain (principal); R77.8 Other specified abnormalities of plasma proteins; D61.818 Other pancytopenia; I10 Essential (primary) hypertension; K21.9 Gastro-esophageal reflux disease without esophagitis; Z86.73 Personal history of transient ischemic attack (TIA), and cerebral infarction without residual deficits; Z87.891 Personal history of nicotine dependence; Z79.899 Other long term (current) drug therapy
CPT/HCPCS: 71045; 80053; 82553; 83690; 84484; 85025; 85060; 93005; 94760

== ENCOUNTER 2022-02-23 09:34 | Emergency (ER) | payer OTHER ==
[2022-02-23] MEDS ORDERED: Albuterol 200 PUFF (6.7GM INHALER) ONE (10:42)
[2022-02-23] MEDS ORDERED: Azithromycin 250 MG TAB ONE (11:02)
== END 2022-02-23 11:12 | disposition home or self-care (01) ==
LOC: MADERS 09:34
DX: J18.9 Pneumonia, unspecified organism (principal); I10 Essential (primary) hypertension; K21.9 Gastro-esophageal reflux disease without esophagitis; Z87.891 Personal history of nicotine dependence
CPT/HCPCS: 71046

== ENCOUNTER 2022-03-22 14:42 | Emergency (ER) | payer OTHER ==
[2022-03-22] MEDS ORDERED: Lidocaine 1% w/Epinephrine 1:100K 20 ML VIAL ONE (15:04)
== END 2022-03-22 15:30 | disposition home or self-care (01) ==
LOC: MADERS 14:42
DX: L02.212 Cutaneous abscess of back [any part, except buttock and flank] (principal); L03.312 Cellulitis of back [any part except buttock and flank]; I10 Essential (primary) hypertension; K21.9 Gastro-esophageal reflux disease without esophagitis; Z87.891 Personal history of nicotine dependence; Z79.899 Other long term (current) drug therapy
CPT/HCPCS: 10060

== ENCOUNTER 2022-04-20 07:14 | Emergency (ER) | payer OTHER | END 2022-04-20 08:15 | disposition left against medical advice (07) | LOC: MADERS 07:14 | DX: Z53.21 Procedure and treatment not carried out due to patient leaving prior to being seen by health care provider (principal) ==